=== PATIENT | male | born 1955 | race Caucasian/White ===

== ENCOUNTER → 2024-07-08 17:16 | Outpatient (REF) | payer OTHER, SELFPAY | LOC: MRI 3T 17:16 | PROVIDERS: ATTENDING PHYSICIAN Surgery; FAMILY PHYSICIAN Physician Assistant Medical | DX: R97.20 Elevated prostate specific antigen [PSA] (principal) | CPT/HCPCS: 72197; A9575 ==

== ENCOUNTER 2025-05-15 06:16 | Day surgery (SDC) | payer OTHER, SELFPAY | END 2025-05-15 11:13 | disposition home or self-care (01) | LOC: GI 06:16 | PROVIDERS: ATTENDING PHYSICIAN Internal Medicine | DX: Z12.11 Encounter for screening for malignant neoplasm of colon (principal); D12.2 Benign neoplasm of ascending colon; K63.5 Polyp of colon; Z86.0100 Personal history of colon polyps, unspecified | CPT/HCPCS: 45385; 45380; 88305 ==